=== PATIENT | female | born 1955 | race Caucasian/White ===

== ENCOUNTER 2017-04-30 19:28 | Emergency (ER) | payer MEDICARE ==
[2017-04-30 21:50] LABS: HEMOGLOBIN 10.8 gm/dl (12.3-15.3); RED BLOOD COUNT 3.59 M/UL (4.00-5.10); WHITE BLOOD COUNT 14.4 K/UL (4.5-11.0)
== END 2017-05-01 05:14 | disposition other institution (70) ==
LOC: ER1 19:28
PROVIDERS: Family Medicine
DX: I50.9 Heart failure, unspecified (principal); R60.9 Edema, unspecified; E11.9 Type 2 diabetes mellitus without complications; I25.10 Atherosclerotic heart disease of native coronary artery without angina pectoris; Z99.2 Dependence on renal dialysis
CPT/HCPCS: 31500; 36415; 36600; 71010; 80048; 80053; 81001; 82550; 82553; 82803; 83874; 83880; 84484; 85025; 87086; 93005; 94002; 96365; 96366; 96375; 96376; 99285; A4628; J0330; J0461; J1815